=== PATIENT | male | born 1950 | race Caucasian/White ===

== ENCOUNTER 2018-09-20 18:56 | Emergency (ER) | payer MEDICARE ==
[2018-09-20] MEDS ORDERED: Ibuprofen TAB* 400 MG PO ONE (19:46)
[2018-09-20] MEDS ORDERED: Lidocaine PATCH 5%* 1 PATCH TRANSDERM SCH (20:00)
--- NOTE | 2018-09-20 20:45 | ED ---
Complex/Multi-Sys Presentation - HPI Summary HPI Summary: A 68 y/o male accompanied by his presents to the ED c/o left rib pain. As per triage, "Pt c/o left rib pain since earlier today. States he feels as if he may have broken a rib. States he lifted a heavey object and twisted the wrong way. Reports movement and deep breathing exacerbates pain". According to the patient, he picked something up and twisted the wrong way around 1630 today. He thought that he broke a rib, but realized he possibly teared his muscle. He noted that he can breathe, but cannot take deep breathes as it is painful. Additionally, it hurts to cough. He noted that it is a bit of an ache, but it changes depending on what he is doing at the time as he may experience a stabbing pain. He noted that his health is otherwise fine. Current medications include baby Aspirin, Niacin, and others. - History Of Current Complaint Chief Complaint: EDGeneral Time Seen by Provider: 09/20/18 19:42 Hx Obtained From: Patient Onset/Duration: Sudden Onset, Lasting Hours, Still Present Timing: Constant Severity Currently: Mild - 10 Severity Initially: Mild - 110 Location: Negative - LEFT RIB AREA Character: Sharp Aggravating Factor(s): MOVEMENT/POSITION Alleviating Factor(s): POSITION/REST - Allergies/Home Medications Allergies/Adverse Reactions: Allergies Allergy/AdvReac Type Severity Reaction Status Date / Time No Known Allergies Allergy Verified 09/20/18 19:32 Home Medications: Home Medications Aspirin 81 mg PO DAILY 09/20/18 [History Confirmed 09/20/18] Niacin 500 mg PO BEDTIME 09/20/18 [History Confirmed 09/20/18] PMH/Surg Hx/FS Hx/Imm Hx History: Reports: Other Problems/Disorders - HYDRONEPHROSIS-1979 WITH SURGERY Sensory History: Reports: Hx Contacts or Glasses - READING, Hx Glaucoma Denies: Hx Hearing Aid Comment Only: Hx Cataracts - LEFT Opthamlomology History: Reports: Hx Contacts or Glasses - READING, Hx Glaucoma Comment Only: Hx Cataracts - LEFT - Surgical History Surgery Procedure, Year, and Place: 2010 CATARACT SURGERY LEFT [facility]. LEFT RETINA TEAR REPAIR, [place] 2009. 1979 HYDRONEPHROSIS, [facility]. TONSILLECTOMY A CHILD. HERNIA SURGERY A BABY. HERNIA REPAIR- 2011-[facility] [place] Hx Anesthesia Reactions: No Infectious Disease History: No Infectious Disease History: Denies: Traveled Outside the [place] in Last 30 Days - Family History Known Family History: Negative: Hypertension - Social History Alcohol Use: Rare Substance Use Type: Reports: None Smoking Status (MU): Former Smoker Review of Systems Negative: Fever Positive: Other - POSITIVE: LEFT RIB PAIN All Other Systems Reviewed And Are Negative: Yes Physical Exam - Summary Physical Exam Summary: Appearance: Well-appearing, Well-nourished, lying in bed comfortably Skin: Warm, dry, no obvious rash Eyes: sclera anicteric, no conjunctival pallor ENT: mucous membranes moist, pharynx appears normal Neck: Supple, nontender Respiratory: Clear to auscultation, no signs of respiratory distress Cardiovascular: Normal S1, S2. No murmurs. Normal distal pulses in tibial and radial bilaterally. Abdomen: Soft, nontender, normal active bowel sounds present Musculoskeletal: Normal, Strength/ROM Intact. No focal to chest wall tenderness Neurological: A&Ox3, awake and alert, mentation is normal, speech is fluent and appropriate Psychiatric: affect is normal, does not appear anxious or depressed Triage Information Reviewed: Yes Vital Signs On Initial Exam: Initial Vitals Temp Pulse Resp BP Pulse Ox 99.5 F 74 16 170/87 97 09/20/18 18:57 09/20/18 18:57 09/20/18 18:57 09/20/18 18:57 09/20/18 18:57 Vital Signs Reviewed: Yes Diagnostics - Vital Signs Vital Signs Temp Pulse Resp BP Pulse Ox 09/20/18 18:57 99.5 F 74 16 170/87 97 - Laboratory Lab Statement: Any lab studies that have been ordered have been reviewed, and results considered in the medical decision making process. - Radiology Chest with Ribs XR Radiology Interpretation Completed By: ED Physician - Normal. Pending official report. Complex Multi-Symp Course/Dx Course Of Treatment: A 68 y/o male accompanied by his presents to the ED c/ o left rib pain. As per triage, "Pt c/o left rib pain since earlier today. States he feels as if he may have broken a rib. States he lifted a heavey object and twisted the wrong way. Reports movement and deep breathing exacerbates pain". According to the patient, he picked something up and twisted the wrong way around 1630 today. He thought that he broke a rib, but realized he possibly teared his muscle. He noted that he can breathe, but cannot take deep breathes as it is painful. Additionally, it hurts to cough. He noted that it is a bit of an ache, but it changes depending on what he is doing at the time as he may experience a stabbing pain. He noted that his health is otherwise fine. Physical exam revealed no focal to chest wall tenderness. A Chest with Ribs XR was normal. No hematology was done. In the ED course, the patient received Lidocaine and Ibuprofen. Patient will be discharged with a diagnosis of chest wall pain. Patient is to follow up with primary care provider in 2-3 days. Patient will be sent home with Percocet. Patient is to take medications as prescribed. Patient is to return to ED for any new or worsening symptoms. Patient is agreeable with this plan. - Diagnoses Provider Diagnoses: Chest wall pain Discharge - Sign-Out/Discharge Documenting (check all that apply): Patient Departure - DISCHARGE - Discharge Plan Condition: Good Disposition: HOME Prescriptions: oxyCODONE/Acetamin 5/325 MG* [Percocet 5/325 TAB*] 1 tab PO Q4H PRN #10 tab MDD 4 tabs PRN Reason: Pain Patient Education Materials: Chest Wall Pain (ED) Referrals: Sandra Leonard MD [Primary Care Provider] - 3 Days Additional Instructions: FOLLOW UP WITH PRIMARY CARE PROVIDER IN 2-3 DAYS. TAKE MEDICATIONS PRESCRIBED. RETURN TO ED FOR ANY NEW OR WORSENING SYMPTOMS. - Attestation Statements Document Initiated by Jose: Yes Documenting Scribe: Zi Gamble Provider For Whom Jose is Documenting (Include Credential): Leonel Mantilla MD Scribe Attestation: Zi Portillo, scribed for Leonel Mantilla MD on 09/20/18 at 2123. Status of Scribe Document: Ready
[2018-09-20 21:23] VITALS: BP 143/79
[2018-09-21] MEDS ORDERED: Lidocaine Patch REMOVE* 1 NOTE MISC PATCH OFF SCH
== END 2018-09-20 21:22 | disposition home or self-care (01) ==
LOC: ED 18:56
DX: R07.89 Other chest pain (principal); Z87.891 Personal history of nicotine dependence; R07.81 Pleurodynia
CPT/HCPCS: 99282; A9270-GY

== ENCOUNTER 2018-12-29 12:00 | Emergency (ER) | payer MEDICARE ==
--- NOTE | 2018-12-29 12:25 | ED ---
HPI Chest Pain - HPI Summary HPI Summary: A 68 y/o male presents to [facility] with a chief complaint of intermittent chest pain. He claims that he has been having chest pain at night for about a week. At triage he rated his pain as a 2/10 in severity. He describes his pain as a twinge. He denies N/V, lightheadedness, sweatiness or abdominal pain. He claims that he does not have symptoms now. He reports left shoulder pain but claims it started long before his chest pain. He denies taking aspirin. He has an extensive FHx of cardiac disease. Vital signs while in room HR: 99 bpm. O2 Sat : 96, BP: 139/85 - History of Current Complaint Chief Complaint: EDChestPainROMI Time Seen by Provider: 12/29/18 12:15 Hx Obtained From: Patient Onset/Duration: Started Days Ago, Still Present Timing: Intermittent, Lasting Minutes Initial Severity: Mild Current Severity: Mild Pain Intensity: 2 Pain Scale Used: 0-10 Numeric Chest Pain Location: Diffuse Chest Pain Radiates: No Character: Other: - twinging Aggravating Factor(s): Nothing Alleviating Factor(s): Nothing Associated Signs and Symptoms: Negative: Fever, Lightheadedness, Nausea, Abdominal Pain, Vomiting - Allergy/Home Medications Allergies/Adverse Reactions: Allergies Allergy/AdvReac Type Severity Reaction Status Date / Time No Known Allergies Allergy Verified 09/20/18 19:32 Home Medications: Home Medications Aspirin EC TAB* [Ecotrin EC Low Dose 81 MG*] 81 mg PO DAILY 12/29/18 [History Confirmed 12/29/18] PMH/Surg Hx/FS Hx/Imm Hx History: Reports: Other Problems/Disorders - HYDRONEPHROSIS-1979 WITH SURGERY Sensory History: Reports: Hx Contacts or Glasses - READING, Hx Glaucoma Denies: Hx Hearing Aid Comment Only: Hx Cataracts - LEFT Opthamlomology History: Reports: Hx Contacts or Glasses - READING, Hx Glaucoma Comment Only: Hx Cataracts - LEFT - Surgical History Surgery Procedure, Year, and Place: 2010 CATARACT SURGERY LEFT [facility] [place] LEFT RETINA TEAR REPAIR, [place] 2009. 1979 HYDRONEPHROSIS, [facility]. TONSILLECTOMY A CHILD. HERNIA SURGERY A BABY. HERNIA REPAIR- 2011-[facility] [place] Hx Anesthesia Reactions: No - Family History Known Family History: Positive: Cardiac Disease Negative: Hypertension - Social History Alcohol Use: Rare Substance Use Type: Reports: None Smoking Status (MU): Former Smoker Review of Systems Negative: Fever, Skin Diaphoresis Positive: Chest Pain Negative: Abdominal Pain, Vomiting, Nausea Neurological: Negative - lightheadedness All Other Systems Reviewed And Are Negative: Yes Physical Exam - Summary Physical Exam Summary: Appearance: The patient is well-nourished in no acute distress and in no acute pain. Skin: The skin is warm and dry and skin color reflects adequate perfusion. HEENT: The head is normocephalic and atraumatic. The pupils are equal and reactive. The conjunctivae are clear and without drainage. Nares are patent and without drainage. Mouth reveals moist mucous membranes and the throat is without erythema and exudate. The external ears are intact. The ear canals are patent and without drainage. The tympanic membranes are intact. Neck: The neck is supple with full range of motion and non-tender. There are no carotid bruits. There is no neck vein distension. Respiratory: Chest is non-tender. Lungs are clear to auscultation and breath sounds are symmetrical and equal. Cardiovascular: Split S1. Heart is regular rate and rhythm. There is no murmur or rub auscultated. There is no peripheral edema and pulses are symmetrical and equal. Abdomen: The abdomen is soft and non-tender. There are normal bowel sounds heard in all four quadrants and there is no organomegaly palpated. Musculoskeletal: There is no back tenderness noted. Extremities are non-tender with full range of motion. There is good capillary refill. There is no peripheral edema or calf tenderness elicited. Neurological: Patient is alert and oriented to person, place and time. The patient has symmetrical motor strength in all four extremities. Cranial nerves are grossly intact. Deep tendon reflexes are symmetrical and equal in all four extremities. Psychiatric: The patient has an appropriate affect and does not exhibit any anxiety or depression. Triage Information Reviewed: Yes Vital Signs On Initial Exam: Initial Vitals Temp Pulse Resp BP Pulse Ox 98.6 F 90 18 139/85 96 12/29/18 12:14 12/29/18 12:14 12/29/18 12:14 12/29/18 12:14 12/29/18 12:14 Vital Signs Reviewed: Yes Diagnostics - Vital Signs Vital Signs Temp Pulse Resp BP Pulse Ox 12/29/18 12:14 98.6 F 90 18 139/85 96 - Laboratory Result Diagrams: 12/29/18 12:42 12/29/18 12:42 Lab Statement: Any lab studies that have been ordered have been reviewed, and results considered in the medical decision making process. - Radiology CXR Radiology Interpretation Completed By: Radiologist Summary of Radiographic Findings: NO ACTIVE CARDIOPULMONARY DISEASE IS NOTED. ED physician has reviewed this imaging report. - EKG 12:16 Cardiac Rate: NL - 91 bpm EKG Rhythm: Sinus Rhythm Summary of EKG Findings: normal sinus rhythm at 91 bpm, normal ST, no ectopy, no STEMI Re-Evaluation - Re-Evaluation First Eval Re-Evaluation Time: 15:41 Change: Improved Comment: Patient is feeling better Chest Pain Course/Dx - Course Course Of Treatment: Mr. Hill presented with a couple weeks of an atypical chest pain that is brief and transient and described as sharp. A family member had a recent stroke and he is concerned about the possibility of heart disease. He doesn't have a lot of in the way of risk factors, he was nontoxic in appearance and his vital signs were stable. EKG showed no acute ischemic changes. Labs were obtained including a d-dimer and a delayed troponin and were unremarkable. Chest x-ray revealed no acute pathology. I reassured him that there was no damage occurring to his heart and nothing immediately danger seem to be occurring. I recommended close follow-up as possibility of coronary artery disease is still present. - Diagnoses Provider Diagnoses: Chest pain Discharge - Sign-Out/Discharge Documenting (check all that apply): Patient Departure - DC Patient Received Moderate/Deep Sedation with Procedure: No - Discharge Plan Condition: Stable Disposition: HOME Patient Education Materials: Chest Pain (DC) Referrals: Sandra Leonard MD [Primary Care Provider] - Additional Instructions: Follow up with Dr. Leonard next week. Return to the ED if you experience any new or worsening symptoms. - Billing Disposition and Condition Condition: STABLE Disposition: Home - Attestation Statements Document Initiated by Scribe: Yes Documenting Scribe: Adiel Astorga Provider For Whom Jose is Documenting (Include Credential): Leonel Garcia MD Scribe Attestation: IAdiel, scribed for Leonel Garcia MD on 12/29/18 at 0603. Scribe Documentation Reviewed: Yes Provider Attestation: The documentation as recorded by the scribe, Adiel Astorga accurately reflects the service I personally performed and the decisions made by me, Leonel Garcia MD Status of Scribe Document: Viewed
--- OUTSIDE RECORDS SUMMARY | 2018-12-29 12:34 | XMS REPORT | Continuity of Care Document ---
:1950 External Reference #:[id number] Author Name Nagi Frey M.D. Address [address] [place] [place] [address] Care Team Providers Name Role Phone Sandra Munoz M.D. 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 Active Onset: 01/25/2017 Presbyopia Terri Hernández O.D. Active Onset: 10/28/2015 Vitreous degeneration Terri Hernández O.D. Active Onset: 10/28/2015 Presence of intraocular lens Terri Hernández O.D. Active Onset: 10/28/2015 Nuclear senile cataract Terri Hernández O.D. Active Onset: 10/28/2015 Nonexudative age-related macular Terri Hernández O.D. Active degeneration Family History Date Family Member(s) Observation Comments Father No Current Problems Mother No Current Problems First Brother Cataract Social History Type Date Description Comments Sex Unknown Marital Status Legal Status: Occupation [employer] Work Status Full-Time Employment ETOH Use Occasionally consumes alcohol Tobacco Use Start: Unknown Patient has never smoked Recreational Drug Use Never Used Drugs Smoking Status Reviewed: 12/28/18 Patient has never smoked Allergies, Adverse Reactions, Alerts Description No Known Drug Allergies Medications Medication Date Status Form Strength Qnty SIG Indications Ordering Provider Preservision Active Capsules Areds 2 90caps 1 cap Terri Teixeira Areds 2 017 by Edgar, mouth O.D. twice a day Aspir-81 /[address] 81mg every Unknown 000 day Niacin 0 Active Tablets 500mg every Unknown 000 day Ocuvite Adult Hx Capsules every Terri Teixeira 50+ 016 - day Edgar, O.D. 017 Immunizations Description No Information Available Vital Signs Description No Information Available Results Description No Information Available Procedures Date Code Description Status 02/09/2018 36486 Scanning Computerized Opthalmic Diagnostic Posterior Seg Completed Retina 02/09/2018 77710 Determination Of Refractive State Completed 02/09/2018 01418 Est Patient Comprehensive Exam Completed 01/25/2017 86878 Scanning Computerized Opthalmic Diagnostic Posterior Seg Completed Retina 01/25/2017 13646 Determination Of Refractive State Completed 01/25/2017 11018 Est Patient Comprehensive Exam Completed 10/28/2015 80501 Scanning Computerized Opthalmic Diagnostic Posterior Seg Completed Retina 10/28/2015 39632 Determination Of Refractive State Completed 10/28/2015 88788 Est Patient Comprehensive Exam Completed 10/28/2014 92073 Est Patient Comprehensive Exam Completed 10/28/2014 33727 Determination Of Refractive State Completed 10/28/2014 60404 Scanning Computerized Opthalmic Diagnostic Posterior Seg Completed Retina 10/28/2014 81511 Fundus Photography With Interpretation And Report Completed 10/11/2012 88279 Remove Secondary Cataract, Laser (Yag) Completed 03/21/2012 80714 Visual Field Exam Extended Completed 11/26/2011 20385 Est Patient Comprehensive Exam Completed 12/09/2010 02008 Extracapsular Cataract Extraction W/Intraocular Lens Completed 11/24/2010 62027 Ophthalmic Biometry Completed 11/24/2010 38394 Scanning Computerized Opthalmic Diagnostic Posterior Seg Completed Retina 11/24/2010 32474 Computerized Corneal Topography Completed 11/19/2010 55685 Est Patient Comprehensive Exam Completed Encounters Type Date Location Provider Dx Diagnosis Office Visit 10/11/2012 [facility]leo, Andres M. Ahumada, 366.53 After Cataract 9:00a wu FELIPE M.D. Obscuring Vision 366.53 After Cataract Obscuring Vision Office Visit 11/24/2010 10:00a Otf Rodriguez 366.16 Senile Nuclear wu FELIPE M.D. Sclerosis / Cataract 362.56 Macular Puckering Plan of Treatment 12/28/2018 - Nagi Frey M.D.H35.4207 Nonexudative age-related macular degeneration, bilateral, early dry stageComments:Smoking can increase the risk of developing or worsening any eye related disease, as well as affect your overall health. If you are a smoker, we strongly recommend that you quit.If you are not a smoker, we strongly recommend that you do not start. You have Macular Degeneration. Check your Amsler Grid, with each eye separately, and take the AREDS II formula vitamins. If you notice any changes in your vision, please call the office and schedule an appointment to see any of the doctors here.Follow up:1 Year Follow Up DFE You can expect to have your eyes dilated at your next visit. If Dr. Frey orders any additional testing, it may require extra time. We recommend that you bring sunglasses, as dilation drops often make you light sensitive until they wear off. We always recommend you bring someone to drive you home if you are uncomfortable driving with your eyes dilated. If you have any questions before your next visit, feel free to call our office at .H25.11 Age-related nuclear cataract, right eyeComments:You have been diagnosed with a cataract in the right eye. If you are happy with your vision as it is, we will see you at your next scheduled appointment. If you feel like your vision is getting worse before your scheduled appointment, please call Georgia Byers, at [phone].Z96.1 Presence of intraocular lensComments:The artificial lens implant in your left eye appears to be stable at this time.
[2018-12-29 12:54] LABS: ABS Basophils 0 10^3/ul (0-0.2); ABS Eosinophils 0.2 10^3/ul (0-0.6); ABS Lymphocytes 1.5 10^3/ul (1.0-4.8); ABS Monocytes 0.5 10^3/ul (0-0.8); ABS Neutrophils 1.7 10^3/ul (1.5-7.7); ABS Nucleated RBC 0 10^3/ul; Eosinophil % 4.2 %; Hematocrit 42 % (36-46); Hemoglobin 13.9 g/dL (14.0-18.0); Lymphocyte % 37.2 %; Mean Corpuscular HGB Conc 33 g/dL (31-36); Mean Corpuscular Hemoglobin 27 pg (27-31); Mean Corpuscular Volume 82 fL (80-94); Mean Platelet Volume 7.8 fL (7.4-10.4); Nucleated Red Blood Cells % 0; Platelet Count 168 10^3/uL (150-450); Red Blood Count 5.15 10^6 /uL (4.18-5.48); Red Cell Distribution Width 14 % (10.5-15); White Blood Count 3.9 10^3/uL (3.5-10.8)
[2018-12-29 13:02] LABS: INR 0.98 (0.77-1.02)
[2018-12-29 13:13] LABS: Albumin 4.2 g/dL (3.2-5.2); Albumin/Globulin Ratio 1.7 (1-3); BUN/Creatinine Ratio 30.4 (8-20); Calcium 9.2 mg/dL (8.6-10.3); EGFR African American 99.3 (>60); EGFR Non-African American 82.1 (>60); Globulin 2.5 g/dL (2-4); Potassium 4.2 mmol/L (3.5-5.0); Total Bilirubin 1.4 mg/dL (0.2-1.0); Total Protein 6.7 g/dL (6.4-8.9)
[2018-12-29 13:14] LABS: Troponin I 0.01 ng/mL (<0.04)
[2018-12-29 13:55] LABS: TSH (Thyroid Stimulating Horm) 0.7 mcIU/mL (0.34-5.60)
[2018-12-29 16:13] VITALS: BP 115/76
== END 2018-12-29 16:11 | disposition home or self-care (01) ==
LOC: ED 12:00
DX: R07.9 Chest pain, unspecified (principal); Z87.891 Personal history of nicotine dependence
CPT/HCPCS: 36415; 71045; 80053; 83605; 84443; 84484; 85025; 85379; 85610; 93005; 99282